=== PATIENT | female | born 1990 | race Caucasian/White ===

== ENCOUNTER 2021-01-05 11:03 | Inpatient (IN) | payer MEDICAID, SELFPAY ==
[2021-01-05 11:04] VITALS: BP 123/61; PULSE 78; RESP 17; TEMP 36.1; O2SAT 94; BMI 26.2
--- NOTE | 2021-01-05 11:31 | EDS_ITS ---
HPI History of Present Illness Chief Complaint: Substance Abuse Detail of Chief Complaint: Requesting detox from fentanyl Informant: patient Narrative Narrative: Patient presents requesting detox from fentanyl. Patient states that she uses daily. She uses via the IV route. Last dose was last evening. Patient feels irritable and has a headache. She complains of body aches. She is had no vomiting or diarrhea. Patient has never gone through detox before. [facility] Medical History (Updated 01/05/21 @ 13:[address] Devyn Martin, DO) Anxiety Depression Restless leg syndrome Home Medications ondansetron [Zofran ODT] 4 mg PO Q6H PRN 01/05/21 [History Last Taken Unknown] Allergy/AdvReac Type Severity Reaction Status Date / Time No Known Allergies Allergy Verified 01/05/21 11:03 Social History Smoking Status: Current every day smoker tobacco type: cigarettes ROS ROS ED Constitutional Constitutional ED: Reports systems reviewed and no addt'l complaints, except as documented; Denies body ache(s), change in weight or chills Eyes Eyes: Denies acute decrease in peripheral vision, change in vision, double vision or loss of vision ENT ENT ED: Reports none; Denies ear pain, lip swelling, loss taste/smell, neck pain, otalgia or sore throat Cardiovascular Cardiovascular: Reports none; Denies abdominal pain, chest pain with activity, leg edema, lightheadedness, palpitations, rapid heart rate or syncope Respiratory/Chest Respiratory/Chest: Reports none; Denies change in mental status, dry cough, dyspnea, hemoptysis, shortness of breath at rest or shortness of breath with exertion Gastrointestinal Gastrointestinal: Reports none; Denies abdominal pain, change in stool character, diarrhea, hematemesis, hematochezia, melena, rectal bleeding or vomiting Genitourinary Genitourinary ED: Reports none; Denies abdominal discomfort, anuria, dysuria, genital pain or polyuria Musculoskeletal Musculoskeletal: Reports none, arthralgias and myalgias; Denies back pain, difficulty walking, extremity pain or muscle weakness Integumentary Reports none; Denies abscess or rash Neurologic Neurologic: Reports none and headache(s); Denies abnormal gait, confusion, focal weakness, frequent falls, loss of vision, numbness, paresthesias, radicular pain, vertigo or weakness Psychiatric Psychiatric: Reports systems reviewed and no addt'l complaints, except as documented and none; Denies behavioral changes, confusion, difficulty concentrating, hallucinations, suicidal ideation, tactile hallucinations or visual hallucinations Endocrine Endocrinology: Denies none, cold intolerance, excessive sweating, fatigue or heat intolerance Hematologic/Lymphatic Hematologic/Lymphatic: Reports none; Denies anemia, easy bleeding or easy bruising Allergic/Immunologic Allergic/Immunologic ED: Denies as per HPI, none, lip swelling, mouth swelling, throat swelling, tongue swelling or hives EXAM Physical Exam Const Vital Signs: 01/05/21 11:04 01/05/21 13:23 Temperature 96.9 F L 98.7 F Temperature Source Temporal Oral Pulse Rate 78 87 Respiratory Rate 17 18 Blood Pressure 123/61 H 132/75 H Blood Pressure Mean 81 94 Pulse Ox 94 95 Oxygen Delivery Method Room Air Room Air Positive well nourished and well developed General Appearance ED: well developed and NAD HEENT Reports TM's clear and moist mucous membranes normocephalic and atraumatic; Negative for trauma or tenderness Tympanic Membrane ED: Yes TM's clear Eyes PERRL and EOMs intact bilaterally General Eye ED: Negative for pale conjunctiva or scleral icterus Neck no lymphadenopathy, supple and no JVD General: Negative for tenderness Chest Wall inspection of chest normal and palpation of chest normal Chest: Negative for tenderness Resp normal respiratory effort and clear to auscultation bilaterally Effort and Inspection: Negative for respiratory distress or pain with movement Auscultation: Negative for rhonchi, wheezes or diminished lung sounds Cardio regular rate, regular rhythm, S1 normal heart sound, S2 normal heart sound and no murmurs Peripheral Pulses: pulses 2+ throughout GI normal to inspection, nondistended, normoactive bowel sounds, soft to palpation, non-tender, non-distended and no masses Back/Spine no CVA tenderness and no thoracic nor lumbar tenderness Extremity normal to inspection General Extremety ED: Negative for edema General Extremity: Negative for edema Neuro oriented x3, CN's II-XII intact bilaterally, no sensory deficits noted and gait normal Sensorium / Orientation: awake, alert, oriented to person, oriented to place and oriented to time Motor Exam: strength 5/5 throughout and strength abnormal Psych mental status grossly normal Skin no rashes or lesions noted and no wounds MDM MDM MDM Narrative Medical decision making narrative: Was given Ativan 1 mg IV as well as Zofran 4 mg IV. Case will be discussed with hospitalist will evaluate patient for admission. Lab Data Attestation: I reviewed the patient's lab results. Labs: Laboratory Results - last 24 hr 01/05/21 01/05/21 01/05/21 11:40 11:50 11:50 WBC 8.7 RBC 3.73 L Hgb 11.5 L Hct 36.2 L MCV 97.1 MCH 30.8 MCHC 31.8 L RDW Std Deviation 48.4 H RDW Coeff of Fabio 13.5 Plt Count 403 MPV 9.3 Immature Gran % (Auto) 0.300 Neut % (Auto) 50.6 Lymph % (Auto) 36.8 [place] % (Auto) 8.3 Eos % (Auto) 3.8 Baso % (Auto) 0.2 Absolute Neuts (auto) 4.4 Absolute Lymphs (auto) 3.19 Nucleated RBC % 0 Sodium Potassium Chloride Carbon Dioxide Anion Gap BUN Creatinine Estim Creat Clear Calc Est GFR (MDRD) Af Amer Est GFR (MDRD) Non-Af BUN/Creatinine Ratio Glucose Calcium Total Bilirubin AST ALT Alkaline Phosphatase Total Protein Albumin Globulin Albumin/Globulin Ratio Serum , Qual NEGATIVE Urine Opiates Screen NEGATIVE Urine Methadone Screen NEGATIVE Ur Barbiturates Screen NEGATIVE Ur Phencyclidine Scrn NEGATIVE Ur Amphetamines Screen POSITIVE H U Methamphetamin-MDMA POSITIVE H U Benzodiazepines Scrn NEGATIVE Urine Cocaine Screen POSITIVE H U Cannabinoids Screen POSITIVE H Ur Drug Screen Comment Ethyl Alcohol 01/05/21 01/05/21 11:50 11:50 WBC RBC Hgb Hct MCV MCH MCHC RDW Std Deviation RDW Coeff of Fabio Plt Count MPV Immature Gran % (Auto) Neut % (Auto) Lymph % (Auto) [place] % (Auto) Eos % (Auto) Baso % (Auto) Absolute Neuts (auto) Absolute Lymphs (auto) Nucleated RBC % Sodium 139 Potassium 3.9 Chloride 104 Carbon Dioxide 30.0 Anion Gap 5 BUN 11 Creatinine 0.69 Estim Creat Clear Calc 112.62 Est GFR (MDRD) Af Amer 129 Est GFR (MDRD) Non-Af 106 BUN/Creatinine Ratio 15.9 Glucose 93 Calcium 8.9 Total Bilirubin 0.40 AST 168 H ALT 254 H Alkaline Phosphatase 90 Total Protein 7.5 Albumin 3.6 Globulin 3.9 Albumin/Globulin Ratio 0.9 Serum , Qual Urine Opiates Screen Urine Methadone Screen Ur Barbiturates Screen Ur Phencyclidine Scrn Ur Amphetamines Screen U Methamphetamin-MDMA U Benzodiazepines Scrn Urine Cocaine Screen U Cannabinoids Screen Ur Drug Screen Comment Ethyl Alcohol < 3.0 Discharge Plan Dx/Rx/DC Orders Clinical Impression: Opioid abuse with withdrawal, Desire for detoxification Disposition Disposition: Acute Care Hospital [facility]
[2021-01-05] MEDS: Ondansetron 4 MG/2 ML Vial IV (11:55)
[2021-01-05] MEDS: LORazepam 2 MG/ML Syringe 1 MG IV (11:55)
[2021-01-05 12:04] LABS: Amphetamine Urine VISTA POSITIVE (<1000 ng/mL); Barbiturate Urine VISTA NEGATIVE (< 200 ng/mL); Benzodiazepine Urine VISTA NEGATIVE (< 200 ng/mL); Cocaine Urine VISTA POSITIVE (< 300 ng/mL); Ecstacy Urine VISTA POSITIVE (< 500 ng/mL); Methadone Urine VISTA NEGATIVE (< 300 ng/mL); PCP Urine VISTA NEGATIVE (< 25 ng/mL); THC Urine VISTA POSITIVE (< 50 ng/mL); Vista UDS pH Range 6
[2021-01-05 12:07] LABS: Absolute Lymphocyte Count 3.19 X10^3/uL (0.83-4.51); Absolute Neutrophil Count 4.4 X10^3/uL (2.0-7.7); Basophil# 0.02 X10^3/uL; Basophil% 0.2 % (0-1); Eosinophil# 0.33 X10^3/uL; Eosinophils% 3.8 % (0-5); Hematocrit 36.2 % (37-47); Hemoglobin 11.5 g/dL (12.0-15.0); Lymphocyte # 3.19 X10^3/ul (0.83-4.51); Lymphocyte % 36.8 % (19-41); Mean Corp Hgb Conc 31.8 g/dL (32-36); Mean Corpuscular Hgb 30.8 pg (27.0-32.0); Mean Corpuscular Volume 97.1 fL (81-99); Mean Platelet Vol. 9.3 fl (6.2-12.0); Monocyte# 0.72 X10^3/uL; Monocyte% 8.3 % (0-10); NRBC Flagged by Analyzer 0 % (0-5); Neutrophil # 4.38 X10^3/uL (2.7-7.7); Neutrophil % 50.6 % (47-70); Platelet Count 403 K/mm3 (150-450); RBC Distribution Width CV 13.5 % (11.6-14.6); RBC Distribution Width SD 48.4 fl (35.1-43.9); Red Blood Count 3.73 M/mm3 (4.2-5.4); White Blood Count 8.7 K/mm3 (4.4-11.0)
[2021-01-05 12:21] LABS: Internal QC Validated? YES +Cl - CLEAR BKGD; Pregnancy, Serum, hCG Quali. NEGATIVE Negative
[2021-01-05 12:27] LABS: Alcohol, Blood (Medical)-Serum < 3.0 mg/dL
[2021-01-05 12:29] LABS: ALB/GLOB Ratio 0.9 RATIO (0.9-2.4); AST(SGOT) 168 U/L (15-37); Alanine Aminotransfer ALT/SGPT 254 U/L (13-56); Albumin, Serum 3.6 g/dL (3.2-5.0); Alkaline Phosphatase 90 U/L (45-117); Anion Gap 5 (5-15); BUN 11 mg/dL (7-18); BUN/Creat Ratio 15.9 RATIO (10-20); Calcium,Total 8.9 mg/dL (8.5-10.1); Chloride 104 mmol/L (98-107); Creatinine, Serum 0.69 mg/dL (0.55-1.02); EST Glomerular Filtration Rate 106 mL/min (>60); Est Glom Filt Rate - Afr Amer 129 mL/min (>60); Estimated Creatinine Clearance 112.62 ml/min; Globulin 3.9 g/dL (2.2-4.2); Glucose 93 mg/dL (74-106); Potassium 3.9 mmol/L (3.5-5.1); Protein, Total 7.5 g/dL (6.4-8.2); Sodium Level 139 mmol/L (136-145)
[2021-01-05 13:23] VITALS: BP 132/75; PULSE 87; RESP 18; TEMP 37.1; O2SAT 95
--- NOTE | 2021-01-05 13:31 | HP.PCM.HOS_ITS ---
HPI - General HPI Narrative CATALINO BYRD, is a 30 F who presented to the emergency department [facility] on 01/05/2021 with request for opiate detox. She reports she is never had detox in the past. She has been using intravenous drugs for approximately 9 months now. She reports her drug of choice is fentanyl and she is using approximately 3 g/day. Her last use was approximately 10-11 o'clock yesterday evening. She is not complaining of some agitation, myalgias, arthralgias, and nasal irritation. She has no known history of hepatitis C. She denies sharing needles. Upon admission her vital signs were stable. Her CBC is fairly unremarkable with a mild anemia at 11.5. Her CMP is unremarkable other than elevated LFTs with an AST of 168 and ALT of 254. Her talk screen is positive for amphetamines, cocaine, and THC. Her serum test is negative. [facility] Medical History Anxiety Depression Restless leg syndrome Home Medications ondansetron [Zofran ODT] 4 mg PO Q6H PRN 01/05/21 [History Last Taken Unknown] Allergy/AdvReac Type Severity Reaction Status Date / Time No Known Allergies Allergy Verified 01/05/21 11:03 Social History (Updated 01/05/21 @ 13:[address] Stefanie Jordan DO) Smoking Status: Current every day smoker tobacco type: cigarettes alcohol intake: never substance use type: heroin ROS Review of Systems ROS Unobtainable: Denies due to encephalopathy, due to endotracheal tube, due to mental condition, due to mental status or other Constitutional Constitutional: Reports chills; Denies anorexia, change in weight, fatigue, fever(s), malaise, night sweats, weakness or other Eyes Eyes: Denies blurry vision, change in eye color, change in vision, discharge from eye(s), double vision, erythema, eye pain, loss of vision or other ENT HEENT: Reports other Details: Nasal itching ; Denies abnormal hearing, dysphagia, ear pain, epistaxis, headache(s), hearing loss, nasal congestion, nasal discharge, post nasal drip, sinus pressure or sore throat Cardiovascular Cardiovascular: Denies chest pain, claudication, dyspnea on exertion, edema, lightheadedness, orthopnea, palpitations, paroxysmal nocturnal dyspnea, rapid heart rate, syncope or other Respiratory/Chest Respiratory/Chest: Denies cough, dyspnea, excessive phlegm production, hemoptysis, productive cough, shortness of breath at rest, shortness of breath with exertion, wheezing or other Gastrointestinal Gastrointestinal: Denies abdominal pain, coffee ground emesis, constipation, diarrhea, dyspepsia, hematemesis, hematochezia, loose stools, melena, nausea, vomiting or other Genitourinary Genitourinary: Denies burning urination, difficulty urinating, dysuria, hematuria, nocturia, urinary frequency, urinary hesitancy, urinary incontinence, urinary urgency or other Musculoskeletal Musculoskeletal: Reports arthralgias, joint pain and myalgias; Denies back pain, joint stiffness, joint swelling, neck pain or other Neurologic Neurologic: Denies abnormal gait, abnormal speech, confusion, disequilibrium, dizziness, focal weakness, headache(s), numbness, paresthesias, seizure-like activity, seizures, syncope, tingling, tremor(s) or other Psychiatric Psychiatric: Reports other Details: Agitation ; Denies anxiety, depression, homicidal ideation or suicidal ideation Endocrine Endocrinology: Denies change in body appearance, cold intolerance, excessive sweating, heat intolerance, polydipsia, polyuria or other Hematologic/Lymphatic Hematologic/Lymphatic: Denies anemia, easy bleeding, easy bruising, lymphadenopathy or other Allergic/Immunologic Allergic/Immunologic: Denies rhinitis, hives, eczemia, asthma or other Vital Signs Vital Signs Vital Signs: 01/05/21 11:04 01/05/21 13:23 Temperature 96.9 F L 98.7 F Temperature Source Temporal Oral Pulse Rate 78 87 Respiratory Rate 17 18 Blood Pressure 123/61 H 132/75 H Blood Pressure Mean 81 94 Pulse Ox 94 95 Oxygen Delivery Method Room Air Room Air Weight Weight: 73.8 kg Body Mass Index (BMI) 26.2 Physical Exam Const alert, oriented x3 and no apparent distress Constitutional Narrative: Young white female sitting up in bed, appears slightly sleepy but interacts appropriately General Appearance: cooperative HEENT normocephalic, head/scalp atraumatic, hearing grossly normal bilaterally, moist oral mucous membranes and oropharynx normal Mouth: oral and palatal mucosa normal Eyes PERRL, EOMs intact bilaterally and conjunctivae normal Neck no lymphadenopathy, supple and no JVD Resp normal respiratory effort, no retractions, no use of accessory muscles and clear to auscultation bilaterally Cardio regular rate, regular rhythm, S1 normal heart sound, S2 normal heart sound, no murmurs, no rub, no gallops, no clicks and no JVD GI normal to inspection, nondistended, normoactive bowel sounds, soft to palpation, non-tender and non-distended Extremity normal to inspection, full ROM and no clubbing, cyanosis or edema Peripheral Pulses: Yes pulses 2+ throughout Skin no wounds, skin turgor normal, no jaundice, no petechiae and no mottling Skin Narrative: Track gant noted Neuro oriented x3, CN's II-XII intact bilaterally, moves all extremities and no focal motor deficits Sensorium / Orientation: awake, alert, oriented to person, oriented to place and oriented to time Speech: speech normal Motor Exam: strength 5/5 throughout Psych Psych Narrative: flat affect Lab / Micro Data Attestation: I reviewed the patient's lab results. Result Diagrams: 01/05/21 11:50 01/05/21 11:50 Labs: Laboratory Results - last 24 hr 01/05/21 01/05/21 01/05/21 11:40 11:50 11:50 WBC 8.7 RBC 3.73 L Hgb 11.5 L Hct 36.2 L MCV 97.1 MCH 30.8 MCHC 31.8 L RDW Std Deviation 48.4 H RDW Coeff of Fabio 13.5 Plt Count 403 MPV 9.3 Immature Gran % (Auto) 0.300 Neut % (Auto) 50.6 Lymph % (Auto) 36.8 [place] % (Auto) 8.3 Eos % (Auto) 3.8 Baso % (Auto) 0.2 Absolute Neuts (auto) 4.4 Absolute Lymphs (auto) 3.19 Nucleated RBC % 0 Sodium Potassium Chloride Carbon Dioxide Anion Gap BUN Creatinine Estim Creat Clear Calc Est GFR (MDRD) Af Amer Est GFR (MDRD) Non-Af BUN/Creatinine Ratio Glucose Calcium Total Bilirubin AST ALT Alkaline Phosphatase Total Protein Albumin Globulin Albumin/Globulin Ratio Serum , Qual NEGATIVE Urine Opiates Screen NEGATIVE Urine Methadone Screen NEGATIVE Ur Barbiturates Screen NEGATIVE Ur Phencyclidine Scrn NEGATIVE Ur Amphetamines Screen POSITIVE H U Methamphetamin-MDMA POSITIVE H U Benzodiazepines Scrn NEGATIVE Urine Cocaine Screen POSITIVE H U Cannabinoids Screen POSITIVE H Ur Drug Screen Comment Ethyl Alcohol 01/05/21 01/05/21 11:50 11:50 WBC RBC Hgb Hct MCV MCH MCHC RDW Std Deviation RDW Coeff of Fabio Plt Count MPV Immature Gran % (Auto) Neut % (Auto) Lymph % (Auto) [place] % (Auto) Eos % (Auto) Baso % (Auto) Absolute Neuts (auto) Absolute Lymphs (auto) Nucleated RBC % Sodium 139 Potassium 3.9 Chloride 104 Carbon Dioxide 30.0 Anion Gap 5 BUN 11 Creatinine 0.69 Estim Creat Clear Calc 112.62 Est GFR (MDRD) Af Amer 129 Est GFR (MDRD) Non-Af 106 BUN/Creatinine Ratio 15.9 Glucose 93 Calcium 8.9 Total Bilirubin 0.40 AST 168 H ALT 254 H Alkaline Phosphatase 90 Total Protein 7.5 Albumin 3.6 Globulin 3.9 Albumin/Globulin Ratio 0.9 Serum , Qual Urine Opiates Screen Urine Methadone Screen Ur Barbiturates Screen Ur Phencyclidine Scrn Ur Amphetamines Screen U Methamphetamin-MDMA U Benzodiazepines Scrn Urine Cocaine Screen U Cannabinoids Screen Ur Drug Screen Comment Ethyl Alcohol < 3.0 Assessment & Plan Assessment/Plan (1) Opioid abuse with withdrawal: (2) Transaminitis: (3) Tobacco abuse: PLAN: Acute opiate withdrawal -Suboxone taper -Supportive medication -180 evaluate suspect will evaluate on Wednesday -Talk screen is positive for amphetamines, cocaine, THC -Patient uses fentanyl at baseline Transaminitis -With IV drug use suspect hepatitis -Acute hepatitis panel pending History of IV drug use -Check hepatitis panel -Check HIV status Tobacco abuse -Recommend cessation -Nicotine patch available if needed DVT prophylaxis -Early ambulation protocol CODE STATUS -Full code Visit Charges Inpatient E&M: 61873 Init Hosp L2
[2021-01-05 14:03] VITALS: BP 132/75; PULSE 87; RESP 18; TEMP 37.1; O2SAT 97
[2021-01-05 15:02] VITALS: BP 115/64; PULSE 71; RESP 16; TEMP 36.9; O2SAT 100
[2021-01-05 15:10] VITALS: BMI 26.2
[2021-01-05] MEDS: hydrOXYzine PAM 25 MG Capsule 50 MG PO (15:28)
[2021-01-05] MEDS: Buprenorphine HCl 2 MG TAB.SUBL SL ×2 (15:29→23:03)
[2021-01-05] MEDS: Dicyclomine 10 MG Capsule 20 MG PO (15:29)
[2021-01-05 22:57] VITALS: BP 122/80; PULSE 79; RESP 18; TEMP 36.9; O2SAT 98
[2021-01-06 03:15] VITALS: BP 119/57; PULSE 78; RESP 16; TEMP 36.2; O2SAT 98
[2021-01-06] MEDS: Buprenorphine HCl 2 MG TAB.SUBL SL ×3 (07:27→22:41)
[2021-01-06 09:15] VITALS: BP 113/79; PULSE 70; RESP 16; TEMP 36.6; O2SAT 98
--- NOTE | 2021-01-06 14:46 | PCM.PN.HOSP ---
Subjective Subjective Patient is anxious, restless, drowsy and lethargic. Heart rate and blood pressure controlled. Objective Data Objective Data Vital Signs: Vital Signs Temp Pulse Resp BP Pulse Ox 97.9 F 70 16 113/79 98 01/06/21 09:15 01/06/21 09:15 01/06/21 09:15 01/06/21 09:15 01/06/21 09:15 Oxygen Delivery Method Room Air Weight: 162 lb 11.218 oz Body Mass Index (BMI) 26.2 Intake & Output: Intake and Output for Last 24 Hours 01/04/21 01/05/21 01/06/21 23:59 23:59 23:59 Intake Total 100 / 450 350 / 350 Balance 100 / 450 350 / 350 Lab / Micro Data Result Diagrams: 01/05/21 11:50 01/05/21 11:50 Physical Exam Narrative General: Lethargic and drowsy. HEENT: Atraumatic, PERRLA, EOMI, Normocephalic Oral: No Gingival or Mucosal Lesions/ Ulcerations Neck: Supple, No JVD, Negative Carotid Bruits Lungs: Air entry equal in bilateral lung bases. No crepitation/rhonchi Cardiovascular: Regular rate, Regular Rhythm, Normal S1, Normal S2, No murmurs Abdomen: Bowel Sounds Present, Soft, Non Tender, Non-Distended : No renal angle tenderness. No suprapubic tenderness. Extremities: No edema, Capillary Refill Less than 3 Seconds Skin: No rashes, No breakdown Musculoskeletal: No Tenderness to Palpation of Joints or Extremities Neurological: Cranial nerves II-XII grossly intact, Deep Tendon Reflexes 2+/4 and Symmetrical, Neuro grossly intact Psych/Mental Status: Restless and anxious Assessment & Plan Assessment/Plan (1) Opioid abuse with withdrawal: PLAN: 1. Acute opioid withdrawal with history of chronic IV fentanyl/opioid use and dependence: Patient is on buprenorphine schedule and taper dose as per protocol along with other supportive medications. 180 has been consulted. U tox positive of methamphetamine cocaine and marijuana. 2. Possible chronic hepatitis probably from viral/substance use related liver injury: ALT 254, AST 168 hepatitis panel and HIV 1 and 2 antibodies are pending. Repeat liver chemistry tomorrow a.m. 3. Chronic cigarette smoker, nicotine use and dependence: On nicotine patch. 4. VTE prophylaxis: Low risk early ambulation encouraged. CODE STATUS -Full code Visit Charges Inpatient E&M: 07120 Subs Hosp L2
[2021-01-06 15:15] VITALS: BP 115/66; PULSE 71; RESP 16; TEMP 36.7; O2SAT 98
[2021-01-06] MEDS: Methocarbamol 750 MG Tablet 1500 MG PO ×2 (15:31→22:38)
[2021-01-06 22:08] VITALS: BP 110/60; PULSE 67; RESP 16; TEMP 36.8; O2SAT 100
[2021-01-06] MEDS: traZODone 100 MG Tablet PO (22:38)
[2021-01-06] MEDS: cloNIDine HCl 0.1 MG Tablet PO (22:38)
[2021-01-07 04:18] VITALS: BP 101/58; PULSE 65; RESP 14; TEMP 36.8; O2SAT 100
[2021-01-07] MEDS: Buprenorphine HCl 2 MG TAB.SUBL SL ×2 (06:34→16:16)
[2021-01-07 07:08] LABS: AST(SGOT) 124 U/L (15-37); Alanine Aminotransfer ALT/SGPT 216 U/L (13-56); Albumin, Serum 3.4 g/dL (3.2-5.0); Alkaline Phosphatase 88 U/L (45-117); Bilirubin, Direct 0.24 mg/dL (0.00-0.30); Globulin 3.6 g/dL (2.2-4.2)
--- NOTE | 2021-01-07 09:29 | ADDICTION ---
This technical publications writer met with PT to conduct ASAM, MSE, DUDIT assessments and to plan for d/c. PT A+Ox4 and participated minimally but appropriately. All assessments completed, faxed to [facility] and placed in PT's chart on godfrey. PT plans tp f/u with [facility] in [place], [place] for IOP. She has requested to discharge on 01/07/21 (evening) in order to make her AM appointment with [facility] on 01/08/21. This technical publications writer communicated this request to [facility] Hospitalist.
[2021-01-07 09:30] LABS: HIV - WCH Non-Reactive (Nonreactive)
--- NOTE | 2021-01-07 10:15 | PCM.DC ---
Discharge Instructions Diet Discharge Diet: No restrictions Activity Discharge Activity: Return to Normal Activity and May Not Drive Dressing / Incision Call your doctor if you observe: Fever of 101 or Higher, Coldness, Increased Pain, Numbness or Tingling, Change in Color, Inability to urinate, Inability to have a bowel movement, Using more than one pad per hour, Shortness of breath, Dizziness, Fainting spells, Swelling in the ankles, Chest pain, Prolonged hiccupping, Increased palpitations (irregular heartbeat), Calf discomfort and Uncontrolled pain Suture Line Care: Avoid Pulling/Pushing Follow Up Care Test Results: Test results from this visit will be discussed in further detail at your follow-up appointment, if applicable. Discharge Plan Admission Admit Date/Time: 01/05/21 13:30 Primary Reason for Your Visit: Acute opioid withdrawal syndrome Attending Provider: Reuben Gonzales Primary Care Provider: Luanne Barger,Yadira Primary Instructions Additional Instructions / Restrictions: Follow-up with outpatient drug rehab in [place] as arranged by 180 program Discharge Orders/Prescriptions Prescriptions: Continued ondansetron 4 mg Tablet,Disintegrating 4 mg PO Q6H PRN (Reason: Nausea) RF: 0 trazodone 50 mg tablet 50 mg PO QHS RF: 0 Changed hydroxyzine HCl 25 mg tablet 12.5 mg PO QHS Qty: 0 RF: 0 Referrals / Follow Up: Care Physician,No Primary [Primary Care Provider] - Disposition Disposition (needs filled in before D/C Order can be placed): Home, self care
[2021-01-07 10:20] VITALS: BP 111/59; PULSE 71; RESP 16; TEMP 36.7; O2SAT 95
--- NOTE | 2021-01-07 10:24 | PHA.DC.MR ---
Pharmacy Service has performed discharge medication reconciliation for this patient. The patient's discharge medication list was reviewed for discrepancies and discrepancies were resolved. Home Medications ondansetron 4 mg PO Q6H PRN 01/05/21 trazodone 50 mg PO QHS 01/05/21 hydroxyzine HCl 12.5 mg PO QHS #0 tab 01/07/21
--- NOTE | 2021-01-07 11:22 | CASEMGMT ---
Addendum entered by Teresa Johnson 01/07/21 13:29: Message was left for [facility] [place]. DIA Schaeffer Original Note: SW received notification that pt has open CPS case w/[facility] and CPS asking for information. SW spoke w/pt, she signed a release to speak w/[place] [facility]. SW to call to let them know pt is here for RAMP and dischargeing today. DIA Schaeffer
[2021-01-07 16:20] VITALS: BP 116/62; PULSE 92; RESP 16; TEMP 36.7; O2SAT 98
--- NOTE | 2021-01-07 16:24 | PCM.DC.SUM ---
Providers Date of Admission: 01/05/21 Primary Care Physician: Yadira Primary Care Phys Reason For Visit: OPIATE DETOX Diagnosis Discharge Diagnosis (1) Opioid abuse with withdrawal: Status: Acute Code(s): F11.13 - Opioid abuse with withdrawal Medications at Discharge Home Medications ondansetron 4 mg PO Q6H PRN 01/05/21 trazodone 50 mg PO QHS 01/05/21 hydroxyzine HCl 12.5 mg PO QHS #0 tab 01/07/21 Hospital Course Summary of Care Provided Hospital Course: This 30-year-old female with history of chronic opioid use, IV fentanyl is admitted for opioid withdrawal syndrome. 1. Acute opioid withdrawal with history of chronic IV fentanyl/opioid use and dependence: Patient is on buprenorphine schedule and taper dose as per protocol along with other supportive medications. 180 has been consulted. U tox positive of methamphetamine cocaine and marijuana.Patient has follow-up with outpatient drug rehab in [place]. 2. 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 Repeat liver chemistry Shows improvement in transaminases. Hepatitis panel are pending. HIV 1 and 2 antibodies are nonreactive. 3. Chronic cigarette smoker, nicotine use and dependence: On nicotine patch. 4. VTE prophylaxis: Low risk early ambulation encouraged Discharged home in the evening today. Discharge medication reconciliation done. Discharge follow-up instructions completed. Discharge process discussed with the patient and all questions were answered to patient's satisfaction. Total time spent, exact 35 minutes on discharge meds reconciliation, examination, coordination of care with nurses and ancillary staff, review of imaging and blood test and discussion with the patient on follow-up instructions. Physical Exam Narrative SeenAnd examined. Patient being evaluated by 180 renal case manager RN General: Alert, awake, oriented x3. Responding questions appropriately HEENT: Atraumatic, PERRLA, EOMI, Normocephalic Oral: No Gingival or Mucosal Lesions/ Ulcerations Neck: Supple, No JVD, Negative Carotid Bruits Lungs: Air entry equal in bilateral lung bases. No crepitation/rhonchi Cardiovascular: Regular rate, Regular Rhythm, Normal S1, Normal S2, No murmurs Abdomen: Bowel Sounds Present, Soft, Non Tender, Non-Distended : No renal angle tenderness. No suprapubic tenderness. Extremities: No edema, Capillary Refill Less than 3 Seconds Skin: No rashes, No breakdown Musculoskeletal: No Tenderness to Palpation of Joints or Extremities Neurological: Cranial nerves II-XII grossly intact, Deep Tendon Reflexes 2+/4 and Symmetrical, Neuro grossly intact Psych/Mental Status: Restless and anxious ABG / Lab / Microbiology Data Result Diagrams: 01/05/21 11:50 01/05/21 11:50 Laboratory: Laboratory Results - last 24 hr 01/06/21 01/07/21 05:57 06:26 Total Bilirubin 0.60 Direct Bilirubin 0.24 AST 124 H ALT 216 H Alkaline Phosphatase 88 Total Protein 7.0 Albumin 3.4 Globulin 3.6 HIV 1&2 Antibody Non-Reactive D/C Instructions Discharge Diet: No restrictions Discharge Activity: Return to Normal Activity and May Not Drive Call your doctor if you observe: Fever of 101 or Higher, Coldness, Increased Pain, Numbness or Tingling, Change in Color, Inability to urinate, Inability to have a bowel movement, Using more than one pad per hour, Shortness of breath, Dizziness, Fainting spells, Swelling in the ankles, Chest pain, Prolonged hiccupping, Increased palpitations (irregular heartbeat), Calf discomfort and Uncontrolled pain Suture Line Care: Avoid Pulling/Pushing Meaningful Use Info Meaningful Use Diagnoses (Choose all that apply): None applicable Discharge Plan Admission Admit Date/Time: 01/05/21 13:30 Primary Reason for Your Visit: Acute opioid withdrawal syndrome Attending Provider: Reuben Gonzales Primary Care Provider: Care Physician,No Primary Instructions Additional Instructions / Restrictions: Follow-up with outpatient drug rehab in [place] as arranged by 180 program Discharge Orders/Prescriptions Prescriptions: Continued ondansetron 4 mg Tablet,Disintegrating 4 mg PO Q6H PRN (Reason: Nausea) RF: 0 trazodone 50 mg tablet 50 mg PO QHS RF: 0 Changed hydroxyzine HCl 25 mg tablet 12.5 mg PO QHS Qty: 0 RF: 0 Referrals / Follow Up: Care Physician,No Primary [Primary Care Provider] - Disposition Disposition (needs filled in before D/C Order can be placed): Home, self care Visit Charges Inpatient E&M: [id number] Disch Hosp
[2021-01-08 09:07] LABS: HEPATITIS B SURFACE AG Negative (Negative); Hepatitis A AB, Total Negative (Negative); Hepatitis A IgM Antibody Negative (Negative); Hepatitis B Core AB IgM Negative (Negative); Hepatitis B Core Ab Total Negative (Negative)
[2021-01-08 12:45] LABS: Hep B Surface Antibodies Reactive (.)
[2021-01-08 12:50] LABS: Hepatitis C Ab >11.0 s/co ratio (0.0-0.9)
--- NOTE | 2021-03-10 08:17 | PCA ---
Addendum entered by Lilliana Mullins 03/10/21 08:20: address was left by previous shift stated she gave them that address on 03/09 vs the one in her chart. Original Note: Spoke with digitizer operator Kirill on the phone and she stated she is able to mail the phone back to the patient and will get a tracking number and give it to Carmen. Gave her address [address] [place] [address] and will call pt at [phone] and let her know it should go out in the mail today.
== END 2021-01-07 18:04 | disposition home or self-care (01) | DRG 773 ==
LOC: ED 13:06 → PCU 14:21
PROVIDERS: Admitting Provider Internal Medicine; Emergency Provider Emergency Medicine; Visit Provider Internal Medicine
DX: F11.23 Opioid dependence with withdrawal (principal); B18.9 Chronic viral hepatitis, unspecified; F17.210 Nicotine dependence, cigarettes, uncomplicated
CPT/HCPCS: 36415; 80053; 80076; 80307; 82077; 84703; 85025; 86703; 86704; 86705; 86706; 86708; 86709; 86803; 87340; 97802; 99251; 99283; A4216; G0463; J2405